=== PATIENT | female | born 1995 | race Caucasian/White ===

== ENCOUNTER 2023-06-02 00:55 | Inpatient (IN) | payer BC, OTHER ==
[2023-06-02] MEDS ORDERED: CARBOPROST TROMETHAMINE 250 MCG/ML 1 ML AMP IM PRN (01:33)
[2023-06-02] MEDS ORDERED: TERBUTALINE 1 MG/ML VIAL SQ PRN (01:33)
[2023-06-02] MEDS ORDERED: LIDOCAINE 0.5% (PF) 5 MG/ML (50 ML SDV) SQ PRN (01:33)
[2023-06-02] MEDS ORDERED: miSOPROStoL 200 MCG TAB PO PRN (01:33)
[2023-06-02] MEDS ORDERED: METHYLERGONOVINE 0.2 MG/ML 1 ML AMP IM PRN (01:33)
[2023-06-02] MEDS ORDERED: TRANEXAMIC 1,000 MG/100ML-NACL 1,000 MG in EMPTY BAG 1 BAG IV PRN (01:33)
[2023-06-02] MEDS ORDERED: OXYTOCIN 10 UNIT/ML 1 ML VIAL IM PRN (01:33)
[2023-06-02] MEDS ORDERED: OXYTOCIN 30 UNITS/500 ML NS 30 UNIT in SALINE 1 500ML.BAG IV SCH ×2 (01:45→02:30)
[2023-06-02] MEDS ORDERED: LACTATED RINGERS 1,000 ML IV SCH ×2 (01:45→03:00)
[2023-06-02 02:04] LABS: Basophils % (A) 0 %; Eosinophils # (A) 0.2 k/uL (0-0.7); Eosinophils % (A) 2 %; HCT 36.4 % (34.0-46.0); HGB 12.5 gm/dL (11.4-16.0); Lymphocytes # (A) 2.6 k/uL (1.0-4.8); Lymphocytes % (A) 17 %; MCH 28.1 pg (25.0-35.0); MCHC 34.4 g/dL (31.0-37.0); MCV 81.9 fL (80.0-100.0); Mean Platelet Volume 8.1; Monocytes # (A) 0.8 k/uL (0-1.0); Monocytes % (A) 5 %; Neutrophils # (A) 10.7 k/uL (1.3-7.7); Neutrophils % (A) 72 %; Platelet Count 280 k/uL (150-450); RBC 4.44 m/uL (3.80-5.40); RDW 13.2 % (11.5-15.5); WBC 14.9 k/uL (3.8-10.6)
[2023-06-02] MEDS ORDERED: diphenhydrAMINE 50 MG/ML 1 ML VIAL IVP PRN ×2 (02:30)
[2023-06-02] MEDS ORDERED: HYDROcodone/APAP 7.5-325MG 1 EACH TAB PO PRN (02:30)
[2023-06-02] MEDS ORDERED: BENZOCAINE/MENTHOL SPRAY 1 GM/SPRAY AEROSOL TOPICAL PRN (02:30)
[2023-06-02] MEDS ORDERED: ZOLPIDEM 5 MG TAB PO PRN (02:30)
[2023-06-02] MEDS ORDERED: HYDROCORTISONE 2.5% RECTAL CREAM 30 GM TUBE RECTAL PRN (02:30)
[2023-06-02] MEDS ORDERED: LANOLIN CREAM 5 GM TUBE TOPICAL PRN (02:30)
[2023-06-02] MEDS ORDERED: diphenhydrAMINE 25 MG CAP PO PRN (02:30)
[2023-06-02] MEDS ORDERED: SIMETHICONE 80 MG CHEWABLE PO PRN (02:30)
[2023-06-02] MEDS ORDERED: HYDROcodone/APAP 5-325MG 1 EACH TAB PO PRN (02:30)
[2023-06-02] MEDS ORDERED: diphenhydrAMINE 50 MG CAP PO PRN (02:30)
--- NOTE | 2023-06-02 02:38 | P.HPOB ---
History of Present Illness H&P Date: 06/02/23 Chief Complaint: 36-5/7 weeks, active labor The patient is a 27-year-old 5 para 20-2 admitted at 36-5/7 weeks by dating parameters through another facility. She is admitted in active labor at 8-9 cm with all signs reassuring, category 1 heart rate tracing. She denies any complications and has had care through the [facility] and found herself closely [facility] when she experienced active labor. She does have a history of previous section 1 with successful vaginal after section 1. She has been planning and requests vaginal after for this delivery. As noted above, she presents in active labor at 8-9 cm in vertex presentation with all signs reassuring. Group B strep status is unknown. Obstetrical history: 5 para 20-2 with 1 term section followed by 1 successful vaginal after section and 2 early miscarriages. Current statistics are listed in history of present illness. Laboratory workup is not available at this time. Gynecologic history: Apparently unremarkable with no apparent history of infections to include STDs. Review of Systems Review of systems is confined to history of present illness. Past Medical History Past Medical History: Asthma History of Any Multi-Drug Resistant Organisms: None Reported Past Surgical History: Section Additional Past Surgical History / Comment(s): lumpectomy 2014 Past Anesthesia/Blood Transfusion Reactions: No Reported Reaction Past Psychological History: Anxiety Additional Psychological History / Comment(s): PPD Smoking Status: Never smoker Past Drug Use History: None Reported Medications and Allergies Allergies Allergy/AdvReac Type Severity Reaction Status Date / Time No Known Allergies Allergy Verified 06/02/23 01:33 Exam Vital Signs Temp Pulse Resp BP 06/02/23 02:27 74 18 115/73 06/02/23 02:12 80 20 115/80 06/02/23 01:57 93 20 141/70 06/02/23 01:42 97.3 F L 79 20 128/66 Intake and Output 06/01/23 06/01/23 06/02/23 14:59 22:59 06:59 Output Total 200 Balance -200 Output: Estimated Blood Loss 200 Other: Weight 92.533 kg In general, this is a well-developed, well-nourished white female in significant discomfort as she is in active labor and near delivery. Her heart has a regular rhythm and rate without murmur. Her lungs auscultation bilaterally in all [place]. Abdomen is gravid, nondistended, has normal active bowel sounds, soft, nontender, without any palpable masses aside from the uterine fundus. Her extremities are without any cyanosis, clubbing, or edema and are nontender to palpation bilaterally. Digital cervical examination upon admission by the nursing staff demonstrates her cervix to be 8-9 cm dilated, 90% effaced, with the vertex in presentation at -1 station. There is a bulging bag of water. Results Result Diagrams: 06/02/23 01:30 Abnormal Lab Results - Last 24 Hours (Table) 06/02/23 Range/Units 01:30 WBC 14.9 H (3.8-10.6) k/uL Neutrophils # 10.7 H (1.3-7.7) k/uL Assessment and Plan (1) Previous section Current Visit: Yes Status: Acute Code(s): Z98.891 - HISTORY OF UTERINE SCAR FROM PREVIOUS SURGERY SNOMED Code(s): 266182998 (2) No care in current Current Visit: Yes Status: Acute Code(s): O09.30 - SUPRVSN OF PREG W INSUFFICIENT ANTENAT CARE, UNSP TRIMESTER SNOMED Code(s): 500575664 (3) Active labor Current Visit: Yes Status: Acute Code(s): O60.10X0 - LABOR W DELIVERY, UNSP TRIMESTER, UNSP SNOMED Code(s): 4192416 Plan: The patient is admitted for active management of labor. She will have expectant management and close maternal and surveillance will be practiced.
--- NOTE | 2023-06-02 02:41 | P.PROBDLV ---
Vaginal Delivery Note - . Vaginal Delivery Note: The patient is a 27-year-old 5 para 20-2 admitted at 36-5/7 weeks by dating parameters gathered elsewhere. She's had care in the [facility] and found herself in active labor in our area. She therefore presented to our triage at which time she was found to be 8-9 cm dilated with bulging bag of water. Her has been uncomplicated though she does have a history of a previous section in her first with a success ful following and has requested vaginal trial of labor for this . On admission, all signs reassuring with a category 1 heart tracing. She did have spontaneous rupture of membranes prior to my arrival and progressed to complete. On my arrival, she was complete and then pushed over the course of several contractions to a normal spontaneous vaginal delivery of a viable 8 lbs. 5 oz. baby boy with Apgars of 8 at 1 minute and 9 at 5 minutes. The placenta was delivered spontaneously, intact, and grossly normal to grossly normal three- vessel cord inserted just off of center from the placental disc. She had no lacerations of the perineum, vagina, or cervix. Estimated blood loss for the case was approximately 250 mL. There are no complications. All sponge, instrument, needle counts were correct. Both mother and are resting comfortably in recovery.
[2023-06-02] MEDS: IBUPROFEN 600 MG TAB PO PRN ×3 (04:07→19:50)
[2023-06-02 06:57] LABS: Appearance,Urine Clear (Clear); Bilirubin,Urine Negative (Negative); Blood,Urine Large (Negative); Color,Urine Red; Glucose,Urine (UA) Negative (Negative); Ketones,Urine Trace (Negative); Leukocyte Esterase,Urine Moderate (Negative); Nitrite,Urine Negative (Negative); PH, Urine 6.5 (5.0-8.0); Protein,Urine 1+ (Negative); RBC,Urine >182 /hpf (0-5); Specific Gravity,Urine 1.016 (1.001-1.035); Urobilinogen,Urine <2.0 mg/dL (<2.0); WBC,Urine 18 /hpf (0-5)
[2023-06-02] MEDS: SENNOSIDES-DOCUSATE SODIUM 1 EACH TAB PO SCH ×2 (09:26→19:56)
[2023-06-02 12:08] LABS: Hepatitis B Surface Antigen Nonreactive
[2023-06-02 17:05] LABS: HIV 2 AB Non-Reactive (Non-Reactive); HIV AB P24 Non-Reactive (Non-Reactive); HIV P24 AG Non-Reactive (Non-Reactive)
[2023-06-03 06:51] LABS: Basophils % (A) 0 %; Eosinophils # (A) 0.3 k/uL (0-0.7); Eosinophils % (A) 3 %; HCT 35.6 % (34.0-46.0); HGB 11.6 gm/dL (11.4-16.0); Hypochromasia Slight; Lymphocytes # (A) 1.5 k/uL (1.0-4.8); Lymphocytes % (A) 13 %; MCH 27.5 pg (25.0-35.0); MCHC 32.5 g/dL (31.0-37.0); MCV 84.8 fL (80.0-100.0); Mean Platelet Volume 8.1; Monocytes # (A) 0.6 k/uL (0-1.0); Monocytes % (A) 5 %; Neutrophils # (A) 8.8 k/uL (1.3-7.7); Neutrophils % (A) 77 %; Platelet Count 214 k/uL (150-450); RDW 13.5 % (11.5-15.5); WBC 11.5 k/uL (3.8-10.6)
[2023-06-03] MEDS: IBUPROFEN 600 MG TAB PO PRN ×2 (09:17→15:32)
[2023-06-03] MEDS: SENNOSIDES-DOCUSATE SODIUM 1 EACH TAB PO SCH (09:17)
--- NOTE | 2023-06-03 10:34 | P.PNOBGVD ---
Subjective - Subjective Principal diagnosis: s/p vaginal delivery Interval history: The patient is doing well this morning and had no acute events overnight. She has no complaints this morning. She reports minimal lochia, passing flatus, voiding without difficulty, ambulating, and eating/drinking without nausea or vomiting. She is her infant without difficulty. She denies chest pain, shortness of breathing, fevers, or chills overnight. She denies pain or swelling in the legs. Patient reports: Reports appetite normal, Reports voiding normally, Reports pain well controlled, Reports ambulating normally [place]: doing well Objective - Latest Vital Signs Latest vital signs: Vital Signs Temp Pulse Resp BP Pulse Ox 06/03/23 00:00 98.8 F 82 18 102/68 98 06/02/23 16:00 98.4 F 72 16 114/72 97 - Exam Extremities: Present: normal Abdomen: Present: normal appearance, soft Uterus: Present: normal, firm - Labs Labs: Abnormal Lab Results - Last 24 Hours (Table) 06/02/23 06/03/23 Range/Units 01:30 06:29 WBC 11.5 H (3.8-10.6) k/uL Neutrophils # 8.8 H (1.3-7.7) k/uL Rubella IgG Antibody 55.10 H (0.00-9.00) IU/mL Microbiology - Last 24 Hours (Table) 06/02/23 04:35 Urine Culture - Final Urine,Voided Assessment and Plan Assessment: 27 year old PPD#1 s/p Plan: 1. . Patient meeting all milestones appropriately. 2. Viable male . s/p circumcision. Will be held until tomorrow when blood cultures will be back. Dispo: Anticipate discharge home tomorrow.
[2023-06-03 10:59] VITALS: RESP 16
[2023-06-03] MEDS: ACETAMINOPHEN TAB 325 MG TAB PO PRN (11:53)
[2023-06-04] MEDS: SENNOSIDES-DOCUSATE SODIUM 1 EACH TAB PO SCH ×2 (01:37→08:32)
[2023-06-04] MEDS: IBUPROFEN 600 MG TAB PO PRN ×2 (03:00→13:25)
[2023-06-04] MEDS: ACETAMINOPHEN TAB 325 MG TAB PO PRN (08:34)
[2023-06-04 08:45] VITALS: BP 113/72; PULSE 74; TEMP 99.1
--- NOTE | 2023-06-04 09:38 | P.DS ---
Providers Date of admission: 06/02/23 01:00 Expected date of discharge: 06/04/23 Attending physician: Alessio Farris Primary care physician: Stated None Hospital Course: 27 year old PPD#2 s/p . The patient is doing well this morning and had no acute events overnight. She has no complaints this morning. She reports minimal lochia, passing flatus, voiding without difficulty, ambulating, and eating/drinking without nausea or vomiting. Infant is in the nursery for IV antibiotics secondary to a positive blood culture, s/p circumcision. She denies chest pain, shortness of breathing, fevers, or chills overnight. She denies pain or swelling in the legs. restrictions are reviewed with the patient including pelvic rest for 6 weeks. The patient is encouraged to call the office if she experiences any heavy bleeding, foul-smelling discharge, breast complaints, or any if she has any other concerns. She will follow up in the office with Dr. Farris in 6 weeks for exam. All questions are answered. Assessment: 27 year old PPD#2 s/p Patient Condition at Discharge: Good Plan - Discharge Summary Discharge Rx Participant: No New Discharge Prescriptions: New Ibuprofen [Motrin] 600 mg PO Q6HR PRN #30 tab PRN Reason: Mild Pain (Scale 1 To 3) Discharge Medication List Ibuprofen [Motrin] 600 mg PO Q6HR PRN #30 tab 06/04/23 [Rx] Follow up Appointment(s)/Referral(s): Alessio Farris MD [STAFF PHYSICIAN] - 6 Weeks Activity/Diet/Wound Care/Special Instructions: Instructions 1. Do not begin any exercise program for 3 weeks. 2. Do not resume sexual relations for 6 weeks or longer if uncomfortable. 3. You may take tub baths or showers at any time. 4. You may use tampons if desired after 6 weeks. 5. Keep any areas repaired with stitches clean and dry. 6. If you are not nursing, wear a good fitting, supportive bra during the day and limit fluid intake for at least 1 week to prevent breast engorgement. 7. Call the office, , within the next week to make appointment for your 6 week checkup if it has not already been made. 8. Report any of the following occurrences to the doctor promptly: a. Heavy, excessive bleeding b. Chills, fever c. Burning or frequency of urination d. Pain or redness and breasts if nursing e. Increasing pain or swelling of vulva (stitches). In addition to the above instructions, the following additional should be followed: 1. No heavy lifting or straining (exercising) until after 6 week checkup. 2. Keep abdominal incision clean and dry: You may wear a dressing if more comfortable. 3. Make office appointment for 2 weeks after delivery date. Discharge Disposition: HOME SELF-CARE
== END 2023-06-04 16:00 | disposition home or self-care (01) | DRG 805 ==
LOC: FBPOP 00:55 → 4FBP 01:00
PROVIDERS: ADMIT Obstetrics & Gynecology; ATTEND Obstetrics & Gynecology
PROC: 10E0XZZ Delivery of Products of Conception, External Approach (ICD-10-PCS; principal; 2023-06-02)
DX: O34.211 Maternal care for low transverse scar from previous cesarean delivery (principal); O60.14X0 Preterm labor third trimester with preterm delivery third trimester, not applicable or unspecified; Z37.0 Single live birth; Z88.6 Allergy status to analgesic agent; F41.9 Anxiety disorder, unspecified; J45.909 Unspecified asthma, uncomplicated; O99.344 Other mental disorders complicating childbirth; O99.52 Diseases of the respiratory system complicating childbirth; Z3A.36 36 weeks gestation of pregnancy
CPT/HCPCS: 81001; 85025; 86762; 86780; 86850; 86870; 86880; 86900; 86901; 87086; 87340; 87390; 87491; 87591